=== PATIENT | male | born 1990 ===

== ENCOUNTER → 2018-05-12 | Outpatient (REF) | payer OTHER ==
[2018-05-12 13:19] LABS: SEMEN APPEARANCE OPAQUE (OPAQUE)
[2018-05-12 13:20] LABS: % NORMAL FORMS 9 % (>=4); IMMOTILITY 49 %; NON PROGRESSIVE MOTILITY (c) 14 %; PROGRESSIVE MOTILITY (a) 37 % (>=32); SEMEN VISCOSITY LIQUID (LIQUID); SEMEN pH 8.5 (7.0-8.0); SPERM CONCENTRATION 22.9 M/ml (>=15.0); SPERM# 91.6 M/Ejac (>=39); TOTAL FUNCTIONAL 7.1 M/Ejac.; TOTAL MOTILITY 51 % (>=40); TOTAL PROGRESSIVE SPERM 33.9 M/Ejac.; WBC CONCENTRATION <=1 M/ml (<=1 M/ml)
== END ==
LOC: M LAB REF 13:10
DX: Z31.41 Encounter for fertility testing (principal)
CPT/HCPCS: 89320